=== PATIENT | male | born 1960 ===

== ENCOUNTER 2018-12-17 17:55 | Emergency (ER) | payer OTHER, BC ==
[2018-12-17 20:01] VITALS: RESP 18; O2SAT 99
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
[2018-12-17 22:32] VITALS: BP 136/90; PULSE 76; TEMP 98
== END 2018-12-17 22:30 | disposition home or self-care (01) ==
LOC: H.ER 17:55
DX: M54.5 Low back pain (principal); M54.6 Pain in thoracic spine; V49.40XA Driver injured in collision with unspecified motor vehicles in traffic accident, initial encounter
CPT/HCPCS: 96372; 99282; J1885